=== PATIENT | male | born 1980 | race African-American/Black ===

== ENCOUNTER 2019-02-08 12:55 | Emergency (ER) | payer MEDICARE, MEDICAID, SELFPAY ==
[2019-02-08 13:25] VITALS: BP 127/74; PULSE 84; RESP 16; TEMP 36.5; O2SAT 99
--- NOTE | 2019-02-08 15:05 | ED.SKABFB ---
HPI - Skin/Abscess/Foreign Bdy General Chief complaint: Skin/Abscess/Foreign Body Stated complaint: sores on feet Time Seen by Provider: 02/08/19 14:58 Source: patient Mode of arrival: ambulatory Limitations: no limitations History of Present Illness HPI narrative: Pt is a 39 y/o male who presents to the ED with c/o JB feet pain that started a week ago. He states that he has been soaking them in epsom salt that has been helping with the pain. He denies a PMHx and he is not diabetic. Pt notes that he wears clean socks and shoes MD complaint: other (JB feet pain) Onset (ago): week(s) (1) Location: L foot and R foot Pain Consistency: constant Relieving factors: other (epsom salt) Exacerbating factors: movement Associated symptoms: denies other symptoms Treatments prior to arrival: other (epsom salt) Related Data Allergies Allergy/AdvReac Type Severity Reaction Status Date / Time No Known Allergies Allergy Verified 02/08/19 13:38 Review of Systems Review of Systems: Narrative: SKIN: Reports dry skin to JB feet MUSCULOSKELETAL: Reports JB feet pain All systems reviewed & are unremarkable except as noted in HPI and below PMFSH Past Medical History Medical History (Updated 02/08/19 @ 15:22 by Lucho Adams) No significant past medical history (Acute) Surgical History Surgical History (Updated 02/08/19 @ 15:22 by Lucho Adams) No significant past surgical history (Acute) Social History Social History (Updated 02/08/19 @ 15:22 by Lucho Adams) Smoking status: Never smoker Gender identity (if verbalized by the patient): Male Exam Narrative: Exam Narrative: GENERAL: Well-appearing, well-nourished, and in no acute distress. HEAD: Normocephalic, atraumatic. EYES: PERRLA and EOMI. ENT: Nares clear, no rhinorrhea or epistaxis. Mucous membranes moist. HEART: DP pulses 2+. ABDOMEN: Soft, nontender, nondistended, normal active bowel sounds. EXTREMITIES: Normal range of motion. No edema. SKIN: Warm, dry, no rash. Scaly dry skin on JB feet NEURO: No focal deficits. Alert and oriented X3. Course Course Emergency Course: Patient with concern for dry skin versus eczema/fungal type findings on foot. No erythema or findings concerning for cellulitis. No trauma. Good peripheral pulses and intact neurovascularly. Patient is ambulatory. Will try some hydrocortisone, clotrimazole cream, and recommended establishing PCP follow-up. Vital Signs Vital signs: Vital Signs Temperature 36.5 C 02/08/19 13:25 Pulse Rate 84 02/08/19 13:25 Respiratory Rate 16 02/08/19 13:25 Blood Pressure 127/74 02/08/19 13:25 Pulse Oximetry 99 02/08/19 13:25 Temperature 36.5 C 02/08/19 13:25 Pulse Rate 84 02/08/19 13:25 Respiratory Rate 16 02/08/19 13:25 Blood Pressure 127/74 02/08/19 13:25 Pulse Oximetry 99 02/08/19 13:25 Discharge Plan Discharge Clinical Impression: Dry skin, Foot callus Patient Disposition: Home, Self-Care Condition: Stable Instructions: Antibiotic Form Additional Instructions: Your exam today shows no infection on your feet. You have dry skin, please soak your feet, then you may rub it with a pumice stone. Please apply your steroid cream. Please keep your feet clean and dry. Follow up with your primary care physician by phone today to set up for reevaluation in the next 7 days. Go to ER for worsening pain, nausea/vomiting, fever/chills, worsening bleeding, chest pain, shortness of breath, blood in stools or urine, etc. or any other concerns. Take any prescribed medications as directed. Stay well-hydrated If you do not have a drug allergy to tylenol or motrin and can tolerate it then take tylenol or motrin as needed for discomfort/pain. Prescriptions: New clotrimazole-betamethasone 1-0.05 % cream 1 applic TOPICAL BID 14 Days Qty: 1 RF: 0 Follow-up/Referrals: UNKNOWN,DOCTOR [Primary Care Provider] - Discharge Date/Time: 02/08/19 15:31
== END 2019-02-08 15:31 | disposition home or self-care (01) ==
PROVIDERS: Emergency Provider Emergency Medicine
DX: L85.3 Xerosis cutis (principal); L84 Corns and callosities
CPT/HCPCS: 99283

== ENCOUNTER 2021-09-13 09:46 | Emergency (ER) | payer OTHER, SELFPAY ==
[2021-09-13 10:07] VITALS: BP 137/83; PULSE 67; RESP 16; TEMP 36.4; O2SAT 100
--- NOTE | 2021-09-13 11:41 | ED.SKABFB ---
HPI - Skin/Abscess/Foreign Bdy General Chief complaint: Skin/Abscess/Foreign Body Stated complaint: cold sore on lip Time Seen by Provider: 09/13/21 10:44 Source: patient Mode of arrival: ambulatory Limitations: no limitations History of Present Illness HPI narrative: Patient is a 41-year-old male who presents the ED with report of a lesion to his left lower lip. Patient reports he had his hair cut by a mcintosh on 09/07. The mcintosh accidentally scraped his left lower lip with the clippers. He denies any large cuts or bleeding from his lip at that time. The next day, he noticed mild swelling and skin irritation to his left lower lip at that same site. He denies any worsening of the lesion over the last week, but does report it has crusted over after using Peroxide at home. Patient denies any pain whatsoever, burning, itching, fever, chills, recent cough or cold symptoms. Patient does mention he has had a cold sore in the past, several years ago, which resolved with over the counter treatment. No definitive diagnosis of HSV. Related Data Allergies Allergy/AdvReac Type Severity Reaction Status Date / Time No Known Allergies Allergy Verified 02/08/19 13:38 Review of Systems Review of Systems: CONSTITUTIONAL: Denies fever, chills, or sweats. ENT: Reports swelling, skin irritation/scabbing to left lower lip. Denies rhinorrhea, congestion, sore throat, mucosal lesions. CARDIOVASCULAR: Denies chest pain. RESPIRATORY: Denies cough. GASTROINTESTINAL: Denies abdominal pain, nausea, vomiting. SKIN: Denies burning, pain, or itching to L lower lip. NEUROLOGIC: Denies headache, numbness, tingling, or weakness. All systems reviewed & are unremarkable except as noted in HPI and below PMFSH Past Medical History Medical History (Updated 09/13/21 @ 11:53 by Bonnie Nunez PA-C) No significant past medical history Surgical History Surgical History (Updated 09/13/21 @ 11:47 by Bonnie Nunez PA-C) Hx of appendectomy Social History Social History (Updated 09/13/21 @ 18:00 by Bonnie Nunez PA-C) Smoking status: Current every day smoker Gender identity (if verbalized by the patient): Male Exam Narrative: GENERAL: Well appearing, well-nourished, non-toxic, in no acute distress. HEAD: Normocephalic, atraumatic. EYES: PERRL/EOMI, conjunctivae clear bilaterally. NOSE: Normal, no drainage. THROAT: Pharynx clear, no exudate. MMs moist. No oral or buccal lesions. Circular area of skin abrasion/irritation to left lower lip with some surrounding scabbing. No active vesicles. No bleeding. No purulent drainage. No tenderness to palpation. NECK: Supple. No adenopathy, no masses. RESPIRATORY: Airway patent, respirations nonlabored. Clear to auscultation bilaterally, no rales, rhonchi, wheezing. CARDIOVASCULAR: Regular rate and rhythm without murmurs, rubs, or gallops. Radial pulses 2+ and equal bilaterally. MUSCULOSKELETAL: Moves all extremities. Strength/ROM intact without gross deformities. SKIN: Warm, dry, normal color. No rashes. NEURO: A&O X3. Speech clear. Cranial nerves II-XII grossly intact. Steady gait. No ataxic movements. PSYCHIATRIC: Appropriate mood and affect. Normal interaction. Course Vital Signs Vital signs: Vital Signs Temperature 97.5 F L 09/13/21 10:07 Pulse Rate 67 09/13/21 10:07 Respiratory Rate 16 09/13/21 10:07 Blood Pressure 137/83 09/13/21 10:07 Pulse Oximetry 100 09/13/21 10:07 Oxygen Delivery Room Air 09/13/21 10:07 Temperature 97.5 F L 09/13/21 10:07 Pulse Rate 67 09/13/21 10:07 Respiratory Rate 16 09/13/21 10:07 Blood Pressure 137/83 09/13/21 10:07 Pulse Oximetry 100 09/13/21 10:07 Oxygen Delivery Room Air 09/13/21 10:07 MDM - Skin/Abscess/Foreign Bdy MDM Narrative Medical decision making narrative: Patient presented to ED with report of scabbing, irritation to left lower lip. Recent injury from mcintosh clippers before lesion began. On exam, circular lesi
== END 2021-09-13 12:22 | disposition home or self-care (01) ==
PROVIDERS: Emergency Provider Emergency Medicine
DX: K13.0 Diseases of lips (principal)
CPT/HCPCS: 99283

== ENCOUNTER 2021-09-16 13:52 | Emergency (ER) | payer OTHER, SELFPAY ==
[2021-09-16 14:06] VITALS: BP 122/75; PULSE 80; RESP 16; TEMP 36.4; O2SAT 100
--- NOTE | 2021-09-16 16:39 | ED.GENADULT ---
HPI - General Adult General Chief complaint: Dental/Oral Stated complaint: Cold Sore Follow-up Time Seen by Provider: 09/16/21 16:29 History of Present Illness HPI narrative: Patient is a 41-year-old male here for evaluation of a wound check to his left lower lip. Patient was seen in the ED last week for the same after being accidentally cut by his mcintosh. He was given a prescription for antibiotics. Patient states that the wound has cleared up significantly since being seen but he just wanted to make sure it looked okay from a provider's perspective. Denies fevers, chills, lip swelling, difficulty breathing, lesions to ears. Related Data Allergies Allergy/AdvReac Type Severity Reaction Status Date / Time No Known Allergies Allergy Verified 09/16/21 14:08 Review of Systems Review of Systems: Gen.: Denies fevers or chills Eyes: Denies eye pain or visual change ENT: Denies congestion Respiratory: Denies shortness of breath or cough CV: Denies chest pain or palpitations GI: Denies abdominal pain nausea, emesis or diarrhea denies burning, urgency, frequency or hematuria Musculoskeletal: Denies back pain or muscle pain Neuro: Denies numbness, tingling, weakness or focal weakness Skin: Reports lesion on lower lip Except as documented, all other systems reviewed and negative [facility] Past Medical History Medical History (Updated 09/16/21 @ 16:40 by Koki Kaminski PA-C) No significant past medical history Surgical History Surgical History (Updated 09/13/21 @ 11:47 by Bonnie Nunez PA-C) Hx of appendectomy Social History Social History (Updated 09/13/21 @ 18:00 by Bonnie Nunez PA-C) Smoking status: Current every day smoker Gender identity (if verbalized by the patient): Male Exam Narrative: Gen: Alert, oriented, no acute distress Eyes: EOMI, no icterus Pulm: Respirations even and unlabored, symmetric thorax expansion, no audible stridor or visible cyanosis CV: Regular rate per telemetry GI: No distension, no voluntary/involuntary guarding Neuro: AOx4, moves all extremities without apparent difficulty or weakness, follows commands Skin: Patient has a shallow 2 mm ulceration on left lower lip with no active drainage, no underlying fluctuance or induration, no tenderness to palpation. No overlying vesicles. No lesions to ears or nose. Psych: Normal mood/affect, insight/judgement good, adequate fund of knowledge, recent/remote memory intact Course Vital Signs Vital signs: Vital Signs Temperature 97.6 F 09/16/21 14:06 Pulse Rate 80 09/16/21 14:06 Respiratory Rate 16 09/16/21 14:06 Blood Pressure 122/75 09/16/21 14:06 Pulse Oximetry 100 09/16/21 14:06 Oxygen Delivery Room Air 09/16/21 14:06 Temperature 97.6 F 09/16/21 14:06 Pulse Rate 80 09/16/21 14:06 Respiratory Rate 16 09/16/21 14:06 Blood Pressure 122/75 09/16/21 14:06 Pulse Oximetry 100 09/16/21 14:06 Oxygen Delivery Room Air 09/16/21 14:06 Medical Decision Making MDM Narrative Medical decision making narrative: 41-year-old male here for evaluation of a wound check on his left lower lip. He was seen by provider several days ago and was placed on antibiotics for this, wound does appear to be healing well with no signs of erythema drainage or underlying fluctuance or induration. His vital signs are normal. Provided reassurance and encouraged him to finish his antibiotics as directed and to follow-up with his primary care provider. Discussed return precautions. Vital Signs Vital Signs: Vital Signs Temperature 97.6 F 09/16/21 14:06 Pulse Rate 80 09/16/21 14:06 Respiratory Rate 16 09/16/21 14:06 Blood Pressure 122/75 09/16/21 14:06 Pulse Oximetry 100 09/16/21 14:06 Oxygen Delivery Room Air 09/16/21 14:06 Temperature 97.6 F 09/16/21 14:06 Pulse Rate 80 09/16/21 14:06 Respiratory Rate 16 09/16/21 14:06 Blood Pressure 122/75 09/16/21 14:06 Pulse Oximetry 1
== END 2021-09-16 17:02 | disposition home or self-care (01) ==
LOC: ANHED 16:56
PROVIDERS: Emergency Provider Emergency Medicine
DX: S01.501D Unspecified open wound of lip, subsequent encounter (principal); W26.9XXD Contact with unspecified sharp object(s), subsequent encounter
CPT/HCPCS: 99281

== ENCOUNTER 2023-03-25 13:43 | Emergency (ER) | payer OTHER, SELFPAY ==
[2023-03-25 14:08] VITALS: BP 143/82; PULSE 66; RESP 18; TEMP 36.4; O2SAT 100
--- NOTE | 2023-03-25 15:26 | ED.DENTAL ---
HPI - Dental/Oral General Chief complaint: Dental/Oral Stated complaint: swollen gums Time Seen by Provider: 03/25/23 15:08 History of Present Illness HPI Narrative: Patient is a 43-year-old male with no known past medical history here today with a swollen review of his mouth. He states that last night he was eating chili and felt like it was very hot and believes he may have burned the roof of his mouth. He denies any difficulty swallowing or breathing since this incident, denies any throat pain. He notes that he put a towel on this area and then was trying to eat ice cubes and they did not seem to help with the pain. Last night the pain was significant and throbbing. He does note that he has appointment soon with a dentist, has poor dentition and baseline but denies any other areas of current dental pain. Does not follow regularly with a doctor. Related Data Allergies Allergy/AdvReac Type Severity Reaction Status Date / Time No Known Allergies Allergy Verified 03/25/23 14:08 Review of Systems Review of Systems: All systems reviewed & are unremarkable except as noted in HPI and below PMFSH Past Medical History Medical History (Updated 03/25/23 @ 15:45 by Mili Vicente MD) No significant past medical history Surgical History Surgical History (Updated 09/13/21 @ 11:47 by Bonnie Petersen PA-C) Hx of appendectomy Social History Social History (Updated 09/13/21 @ 18:00 by Bonnie Petersen PA-C) Smoking status: Current every day smoker Gender identity (if verbalized by the patient): Male Exam Narrative: GENERAL: Well-appearing, well-nourished, and in no acute distress. HEAD: Normocephalic, atraumatic. EYES: PERRLA and EOMI. ENT: Nares clear. Mucous membranes moist. No lesions appreciated on the soft or hard palate, no erythema, no significant edema. He does have diffuse poor dentition with multiple dental caries and fractured teeth. No tooth tenderness or obvious abscess. NECK: Supple. CHEST: Clear to auscultation. No respiratory distress. HEART: Regular rate and rhythm. Normal peripheral pulses. ABDOMEN: Soft, nontender, nondistended. EXTREMITIES: Normal range of motion. No edema. SKIN: Warm, dry, no rash. NEURO: No focal deficits. Alert and oriented x3. PSYCH: Normal mood and affect. Course Course Emergency Course: Chart review performed. Patient here with swollen gums, unsure of when it began. Triage vitals normal. It appears he has one prior visit here in the ED for a lip wound after being cut by his mcintosh. Patient seen evaluated, nontoxic appearing. No palate findings, suspect he likely burned through his mouth by eating hot foods. Dentition appears chronically poor. Will start on Magic mouthwash. No indication for antibiotics or imaging at this time. Will refer to primary care doctor. Advised him to keep his dental appointment. The results of pertinent diagnostic studies and exam findings were discussed. The patient?s provisional diagnosis and plan of care were discussed with the patient and present family. The patient and/or present family expressed understanding of the diagnosis and plan. The nurse was instructed to provide written instructions and appropriate follow-up information. The patient understands their need and responsibility to obtain additional follow-up as instructed. The risks of medications administered and prescribed were discussed with the patient and family present. Vital Signs Vital signs: Vital Signs Temperature 97.6 F 03/25/23 14:08 Pulse Rate 66 03/25/23 14:08 Respiratory Rate 18 03/25/23 14:08 Blood Pressure 143/82 H 03/25/23 14:08 Pulse Oximetry 100 03/25/23 14:08 Oxygen Delivery Room Air 03/25/23 14:08 Temperature 97.6 F 03/25/23 14:08 Pulse Rate 66 03/25/23 14:08 Respiratory Rate 18 03/25/23 14:08 Blood Pressure 143/82 H 03/25/23 14:08 Pulse Oximetry 100 03/25/23 14:08 Oxygen Delivery Room Air 03/25/23 14:08
== END 2023-03-25 15:59 | disposition home or self-care (01) ==
PROVIDERS: Emergency Provider Student in an Organized Health Care Education/Training Program
DX: K13.79 Other lesions of oral mucosa (principal); F17.200 Nicotine dependence, unspecified, uncomplicated
CPT/HCPCS: 99283